=== PATIENT | male | born 1935 | race Caucasian/White ===

== ENCOUNTER 2016-11-05 09:20 | Inpatient (IN) | payer OTHER, BC ==
[~2016-11-05] VITALS: Ht 177.2 cm; Wt 87.8 kg
[2016-11-05] MEDS ORDERED: LISI-526 PO (13:19)
[2016-11-05] MEDS ORDERED: TRAM-10 PO (13:19)
[2016-11-05] MEDS ORDERED: GABA-113 PO (13:19)
[2016-11-05] MEDS ORDERED: TAMS0.4C38 PO (13:19)
[2016-11-05] MEDS ORDERED: AMLO-110 PO (13:19)
[2016-11-05] MEDS ORDERED: ATOR10TA88 PO (13:19)
[2016-11-05] MEDS ORDERED: ATV/2 PO (13:19)
[2016-11-05] MEDS ORDERED: ASPI81TA28 PO (13:19)
[2016-11-05] MEDS ORDERED: MULTCHW PO (13:19)
[2016-11-05] MEDS ORDERED: ATEN-175 PO (13:19)
[2016-11-05 13:38] VITALS: BP 154/76; PULSE 63; TEMP 36.7; O2SAT 98; Ht 177.2 cm; Wt 87.8 kg
[2016-11-05] MEDS ORDERED: LORAZEPAM 1 MG TAB PO PRN ×2 (14:00→14:30)
[2016-11-05] MEDS ORDERED: LORAZEPAM INJ 1 MG in SYRINGE 0.5 ML IV PRN (14:00)
[2016-11-05] MEDS ORDERED: TRAMADOL HCL 50 MG TAB PO PRN ×2 (14:00→14:30)
[2016-11-05] MEDS ORDERED: ONDANSETRON INJ 2 MG/ML 2 ML VIAL IV PRN (14:30)
[2016-11-05] MEDS: LACTATED RINGER'S 1000ML 1,000 ML IV SCH (14:32)
[2016-11-05 14:54] VITALS: BP 153/71; PULSE 64; TEMP 36.6; O2SAT 98
[2016-11-05] MEDS ORDERED: LACTATED RINGER'S 1000ML 1,000 ML IV SCH (15:00)
--- NOTE | 2016-11-05 15:17 | DIAGNOSTIC IMAGING REPORT ---
CHEST 2 VIEWS ROUTINE HISTORY: pre op COMPARISON: None. FINDINGS: The lungs are clear. Cardiac silhouette is top normal in size. No pleural effusions. No pneumothorax. A left coronary artery stent is noted. IMPRESSION: No acute process. Electronically signed by: Mike Cody M.D. 11/05/2016 3:16 PM Dictated Date/Time: 11/05/2016 3:12 PM
--- NOTE | 2016-11-05 15:20 | DIAGNOSTIC IMAGING REPORT ---
LUMBAR SPINE 3 VIEWS HISTORY: PREOP STANDING COMPARISON: None. FINDINGS: There is no fracture. There is 4 mm of retrolisthesis of L5 on S1. There is 5 mm of anterolisthesis of L4 on L5. Left total hip arthroplasty. Mild dextroscoliosis. Moderate osteoarthritis within the right hip. The sacrum appears intact. Severe disc space narrowing at L2-L3 and L3-L4. Moderate disc space narrowing at L4-L5 and L5-S1. Endplate osteophytes seen within the lumbar spine. IMPRESSION: 1. No fractures within the lumbar spine. 2. Grade I anterolisthesis of L4 on L5 and grade I retrolisthesis of L5 on S1. 3. Degenerative changes as described above. 4. Mild dextroscoliosis. Electronically signed by: Mike Cody M.D. 11/05/2016 3:19 PM Dictated Date/Time: 11/05/2016 3:16 PM
[2016-11-05 15:30] VITALS: O2SAT 98
--- NOTE | 2016-11-05 16:05 | Progress Note ---
Subjective Date of Service: Nov 05, 2016. Subjective Pt evaluation today including: conversation w/ patient, conversation w/ family , physical exam, chart review, review of inpatient medication list asked to see for inpt management - here for spine. notes that his medical hx is mostly CAD ([place] 2013, 6 stents), HTN (notes normally well controlled but does have white coat effect and is currently anxious) and BPH (typically 3-4x nocturia, peeing all day today but relates to being nervous) no chest pain no sob no mckeon. just saw sizing sprayer at home last week - echo, hollie, was "cleared for surgery" currently otherwise asymptomatic Review of Systems ros otherwise negative except for as above Objective Vital Signs Date Time Temp Pulse Resp B/P Pulse Ox O2 Delivery O2 Flow Rate FiO2 11/05/16 15:30 98 Room Air 11/05/16 14:54 36.6 64 18 153/71 98 Room Air 11/05/16 13:38 36.7 63 20 154/76 98 Room Air Physical Exam General Appearance: no apparent distress Eyes: EOMI ENT: hearing grossly normal Neck: trachea midline Respiratory/Chest: lungs clear, normal breath sounds, no respiratory distress, no accessory muscle use Cardiovascular: regular rate, rhythm, no murmur Extremities: normal range of motion Neurologic/Psychiatric: teacher associate II-XII nml as tested, alert, normal mood/affect Skin: normal color, warm/dry Laboratory Results Last 24 Hours Test 11/05/16 13:49 11/05/16 14:20 Assessment and Plan CAD - clinically appears stable, continue home meds, continue expectant management. appears recently has been asymptomatic and preop w/u w primary sizing sprayer was reassuring HTN - sl elevation at this time but nothing in worrisome/hypertensive crisis range. continue home meds, but hold lisinopril tomorrow AM and then post op until clearly hemodynamically stable BPH - continue flomax - raise to BID since still seems to have a large degree of LUTS. would also consider starting proscar at discharge DVT proph - per ortho/spine
[2016-11-05 16:25] LABS: BASO % 0.2 %; BASO ABS # 0.01 K/uL (0-0.2); COMPLETE YES; EOS % 0.8 %; HEMATOCRIT 35.2 % (42-52); IG% 0.2 %; LYMPH % 13.9 %; LYMPH ABS # 0.86 K/uL (1.2-3.4); MEAN CELL VOLUME 94.1 fL (80-100); MEAN CORPUSCULAR HEMOGLOBIN 34.2 pg (25-34); MEAN CORPUSCULAR HGB CONC 36.4 g/dl (32-36); MONO % 10.7 %; NEUT % 74.2 %; PLATELET COUNT 252 K/uL (130-400); RED BLOOD COUNT 3.74 M/uL (4.7-6.1); WHITE BLOOD COUNT 6.17 K/uL (4.8-10.8)
[2016-11-05 16:33] LABS: PROTHROMBIN TIME (PATIENT) 10.7 SECONDS (9.0-12.0)
[2016-11-05 16:50] LABS: BUN/CREATININE RATIO 13.3 (10-20); CALCIUM 8.7 mg/dl (8.5-10.1); CREATININE 0.95 mg/dl (0.60-1.40)
[2016-11-05 16:53] LABS: ALB/GLOB RATIO 1.2 (0.9-2)
--- NOTE | 2016-11-05 17:05 | Anesthesiology Progress Note ---
Anesthesia Progress Note Date of Service Nov 05, 2016. Progress Notes Pt is scheduled for L2-S1 lumbar decompression with bolts on 11/06/16. Pt is 81M h/o [place] 2013 s/p 6 stents, HTN, hyperlipidemia, former smoker, LBP, anemia. Pt was recently seen by [facility]. The pt has good functional status. The pt's records have been reviewed. I consented the pt for GA +/- arterial line. The pt is a good candidate for general anesthesia.
--- NOTE | 2016-11-05 19:41 | HISTORY & PHYSICAL EXAMINATION ---
DATE OF ADMISSION: 11/05/2016 CHIEF COMPLAINT: Back and bilateral leg pains. HISTORY OF PRESENT ILLNESS: This very pleasant 81-year-old male who presents with worsening decline in back and bilateral leg pain. He has had these symptoms for several years, again with a decline in function over the past several months. He describes his symptom complex involving ileocecal junction, bilateral buttocks extending down the right greater than left leg. It is markedly limited with any standing and walking. He can only stand and walk for 10-20 feet before he must sit down in order to obtain relief. PAST MEDICAL HISTORY: Significant for hypertension, anxiety and myocardial infarction in 2013. PAST SURGICAL HISTORY: Includes appendectomy, tonsillectomy, hysterectomy, knee surgery, vein surgery, cataract surgery, stent placements. MEDICATIONS: Include aspirin, amlodipine, lorazepam, lisinopril, atenolol, atorvastatin, gabapentin, vitamins and Tramadol. ALLERGIES: TO SULFA AND SENSITIVE TO PERCOCET AND MORPHINE. PHYSICAL EXAMINATION: GENERAL: He is alert and oriented and cooperative. MUSCULOSKELETAL: His lumbar spine demonstrates no abnormal swelling or skin markings. No previous incision is noted. EXTREMITIES: His lower extremities reveal sensory is symmetric and intact. +5/5 plantarflexion, dorsiflexion and quadriceps bilaterally. Negative log roll. ABDOMEN: Soft. HEART: Regular rate and rhythm. LUNGS: Clear. IMAGING: MRI dated April 2016 available for review of the lumbar spine demonstrates severe multilevel spinal stenosis most impressive at L4-L5 with a grade 1 spondylolisthesis. X-[facility] taken today at [facility] also confirmed anterior listhesis at L4-L5 and significant multilevel spondylosis. ASSESSMENT: Spinal stenosis, spondylolisthesis, lumbar. PLAN: At this time, he has failed extensive course of nonoperative care, marked decline in status and would like to pursue surgical intervention. It would require a lumbar decompression and fusion at L2-L3, L3-L4, L4-L5 and L5-S1, with lumbosacral stabilization, most likely including bilateral iliac bolts. Risks, benefits, pros, cons, and alternatives were outlined in detail. Risks include but not limited to from anesthesia, unsterile process, nerve damage, blood loss requiring transfusion, infection, reoperation. Benefits would be marked improvement of his neurogenic claudication. At this time, he will be made n.p.o. We anticipate surgery tomorrow.
[2016-11-05 20:03] LABS: URINE APPEARANCE CLEAR (CLEAR); URINE BILIRUBIN NEG (NEG); URINE COLOR YELLOW; URINE EPITHELIAL CELL AUTO 0-5 /lpf (0-5); URINE NITRITE NEG (NEG); URINE PH 6.5 (4.5-7.5); URINE SPECIFIC GRAVITY 1.019 (1.000-1.030); UROBILINOGEN NEG (NEG)
[2016-11-05 20:11] LABS: MANUAL MICROSCOPIC REQUIRED? NO; REVIEW REQ? NO
[2016-11-05] MEDS: GABAPENTIN 300 MG CAP PO SCH (20:57)
[2016-11-05] MEDS: ATORVASTATIN 10 MG TAB PO SCH (20:57)
[2016-11-05] MEDS: TAMSULOSIN HCL 0.4 MG CAP PO SCH (20:57)
[2016-11-05] MEDS: DOCUSATE SODIUM 100 MG CAP PO SCH (22:24)
[2016-11-05 23:30] VITALS: BP 127/62; PULSE 69; TEMP 36.6; O2SAT 96
[2016-11-06] VITALS (7 sets, daily range): BP systolic 99–148; BP diastolic 52–72; PULSE 65–75; TEMP 36.2–36.5; O2SAT 97–100
[2016-11-06] MEDS: LACTATED RINGER'S 1000ML 1,000 ML IV SCH ×3 (03:22→22:05)
[2016-11-06] MEDS ORDERED: CEFAZOLIN IV 1,000 MG in DEXTROSE 5% 50ML 50 ML IV SCH (06:00)
[2016-11-06] MEDS ORDERED: CEFAZOLIN 2000 MG/60 ML D5W IV SCH (06:00)
[2016-11-06] MEDS ORDERED: CEFAZOLIN IV 2,000 MG in DEXTROSE 5% 50ML 50 ML IV SCH (06:00)
--- NOTE | 2016-11-06 07:46 | Progress Note ---
Subjective Date of Service: Nov 06, 2016. Subjective this pt is feeling a bit anxious and is from reducing his lorazepam of which he takes 2 mg a day per home med [facility], back pain is improved, some blurrey vision which maybe from glucose intolerance Review of Systems Constitutional: No chills, No fever, No weakness Eyes: + worsening of vision, No diplopia, No discharge, No eye pain, No redness Respiratory: No cough, No shortness of breath Cardiac: No chest pain, No edema, No orthopnea Abdomen: No nausea, No pain, No vomiting Male : No dysuria, No urinary frequency Psychiatric: + anxiety, No depression symptoms Objective Vital Signs Date Time Temp Pulse Resp B/P Pulse Ox O2 Delivery O2 Flow Rate FiO2 11/06/16 07:15 36.5 65 20 148/72 97 Room Air 11/05/16 23:45 Room Air 11/05/16 23:30 36.6 69 18 127/62 96 Room Air 11/05/16 15:30 98 Room Air 11/05/16 14:54 36.6 64 18 153/71 98 Room Air 11/05/16 13:38 36.7 63 20 154/76 98 Room Air Physical Exam General Appearance: WD/WN, + mild distress Eyes: PERRL, EOMI, sclerae normal Neck: supple, no JVD Respiratory/Chest: chest non-tender, lungs clear, normal breath sounds Cardiovascular: regular rate, rhythm, no murmur Abdomen: normal bowel sounds, non tender, soft Extremities: no pedal edema, no calf tenderness Neurologic/Psychiatric: alert, oriented x 3 Laboratory Results Last 24 Hours Test 11/05/16 16:00 11/05/16 19:55 White Blood Count 6.17 K/uL Red Blood Count 3.74 M/uL Hemoglobin 12.8 g/dL Hematocrit 35.2 % Mean Corpuscular Volume 94.1 fL Mean Corpuscular Hemoglobin 34.2 pg Mean Corpuscular Hemoglobin Concent 36.4 g/dl Platelet Count 252 K/uL Mean Platelet Volume 8.0 fL Neutrophils (%) (Auto) 74.2 % Lymphocytes (%) (Auto) 13.9 % Monocytes (%) (Auto) 10.7 % Eosinophils (%) (Auto) 0.8 % Basophils (%) (Auto) 0.2 % Neutrophils # (Auto) 4.58 K/uL Lymphocytes # (Auto) 0.86 K/uL Monocytes # (Auto) 0.66 K/uL Eosinophils # (Auto) 0.05 K/uL Basophils # (Auto) 0.01 K/uL RDW Standard Deviation 40.4 fL RDW Coefficient of Variation 11.9 % Immature Granulocyte % (Auto) 0.2 % Immature Granulocyte # (Auto) 0.01 K/uL Prothrombin Time 10.7 SECONDS Prothromb Time International Ratio 1.0 Sodium Level 131 mmol/L Potassium Level 4.0 mmol/L Chloride Level 94 mmol/L Carbon Dioxide Level 28 mmol/L Anion Gap 9.0 mmol/L Blood Urea Nitrogen 13 mg/dl Creatinine 0.95 mg/dl Est Creatinine Clear Calc Drug Dose 66.6 ml/min Estimated GFR () 86.1 Estimated GFR (Non- 74.2 BUN/Creatinine Ratio 13.3 Random Glucose 118 mg/dl Calcium Level 8.7 mg/dl Total Bilirubin 0.7 mg/dl Aspartate Amino Transf (AST/SGOT) 21 U/L Alanine Aminotransferase (ALT/SGPT) 23 U/L Alkaline Phosphatase 55 U/L Total Protein 6.9 gm/dl Albumin 3.8 gm/dl Globulin 3.1 gm/dl Albumin/Globulin Ratio 1.2 Urine Color YELLOW Urine Appearance CLEAR Urine pH 6.5 Urine Specific [place] 1.019 Urine Protein NEG Urine Glucose (UA) TRACE Urine Ketones TRACE Urine Occult Blood TRACE Urine Nitrite NEG Urine Bilirubin NEG Urine Urobilinogen NEG Urine Leukocyte Esterase NEG Urine WBC (Auto) 0 /hpf Urine RBC (Auto) 5-10 /hpf Urine Hyaline Casts (Auto) 0 /lpf Urine Epithelial Cells (Auto) 0-5 /lpf Urine Bacteria (Auto) NEG Assessment and Plan 81 M s/p spine surgery L2-S1 decompression and fusion anxiety, likely some bzd withdrawl will add scheduled lorazepam back and follow CAD - stable, preop w/u w primary hatchery worker HTN - norvasc and atenolol, hold lisinopril tomorrow AM and until hemodynamically stable BPH - flomax -BID DVT proph - per ortho/spine
[2016-11-06] MEDS: TRAMADOL HCL 50 MG TAB PO PRN (08:00)
[2016-11-06] MEDS: ASPIRIN 81 MG ECTAB PO SCH (08:59)
[2016-11-06] MEDS: GABAPENTIN 300 MG CAP PO SCH ×3 (08:59→20:58)
[2016-11-06] MEDS: AMLODIPINE BESYLATE 5 MG TAB PO SCH (08:59)
[2016-11-06] MEDS ORDERED: LISINOPRIL 10 MG TAB PO SCH (09:00)
[2016-11-06] MEDS ORDERED: LORAZEPAM 2 MG TAB PO SCH (09:00)
[2016-11-06] MEDS: DOCUSATE SODIUM 100 MG CAP PO SCH ×2 (09:00→20:58)
[2016-11-06] MEDS ORDERED: PROPOFOL IV EMULSION 10 MG/ML 20 ML VIAL IV ONE (10:45)
[2016-11-06] MEDS ORDERED: ONDANSETRON INJ 2 MG/ML 2 ML VIAL ONE (10:45)
[2016-11-06] MEDS ORDERED: LIDOCAINE HCL 2% 2 ML VIAL (20MG/ML) ONE (10:45)
[2016-11-06] MEDS ORDERED: ROCURONIUM BROMIDE 10 MG/ML 5 ML VIAL ONE ×2 (10:45→16:22)
[2016-11-06] MEDS ORDERED: FENTANYL CITRATE INJ 50 MCG/1 ML 2 ML VIAL ONE ×2 (10:45→15:31)
[2016-11-06] MEDS ORDERED: DEXAMETHASONE SOD INJ 4 MG/ML VIAL ONE (10:45)
[2016-11-06] MEDS ORDERED: ALBUMIN HUMAN 5% 12.5 GM/250 ML VIAL IV ONE (11:29)
--- NOTE | 2016-11-06 11:41 | History & Physical Bridge Note ---
H&P Re-Evaluation Bridge Note: I have examined the patient, reviewed the History & Physical and in the interval since the performance of the History & Physical I have noted the following changes of clinical significance: No changes noted
[2016-11-06] MEDS ORDERED: SODIUM CHLORIDE 0.9% PF 50 ML VIAL ONE (11:56)
[2016-11-06] MEDS ORDERED: BACITRACIN 50000 UNIT VIAL ONE (11:56)
[2016-11-06] MEDS ORDERED: BUPIVACAINE/EPINEPHRINE 0.5% MPF 1:200,000 30 ML VIAL ONE (11:56)
[2016-11-06] MEDS ORDERED: THROMBIN FOR SOLN 20000 UNIT KIT ONE (11:57)
[2016-11-06] MEDS ORDERED: PROMETHAZINE HCL INJ 6.25 MG in SODIUM CHLORIDE 0.9% 50ML 50 ML IV PRN (12:15)
[2016-11-06] MEDS ORDERED: ONDANSETRON INJ 2 MG/ML 2 ML VIAL IV PRN ×2 (12:15→15:45)
[2016-11-06] MEDS ORDERED: HYDROmorphone INJ 1 MG/ML SYR IV PRN (12:15)
[2016-11-06] MEDS ORDERED: EpHEDrine SULFATE INJ 50 MG/ML AMP IV PRN (12:15)
[2016-11-06] MEDS ORDERED: ATROPINE SULFATE 0.1 MG/ML 5ML SYR IV PRN (12:15)
[2016-11-06] MEDS ORDERED: PHENYLEPHRINE HCL INJ 10 MG/ML VIAL ONE (12:45)
[2016-11-06] MEDS ORDERED: KETAMINE HCL INJ 50 MG/ML 10 ML VIAL ONE (12:45)
[2016-11-06] MEDS ORDERED: EpHEDrine SULFATE 50MG/5ML SYR ONE (12:54)
[2016-11-06] MEDS ORDERED: VASOPRESSIN 20 UNIT/ML VIAL ONE (13:06)
[2016-11-06] MEDS ORDERED: SODIUM CHLORIDE 0.9% 1000ML 1,000 ML IV SCH (15:42)
[2016-11-06] MEDS ORDERED: BISACODYL 10 MG SUPP PR PRN (15:45)
[2016-11-06] MEDS ORDERED: FAMOTIDINE 20 MG TAB PO PRN (15:45)
[2016-11-06] MEDS ORDERED: SOD PHOSPHATE/SOD BIPHOSPHATE ENEMA 132 ML BTL PR PRN (15:45)
[2016-11-06] MEDS ORDERED: PROMETHAZINE HCL INJ 12.5 MG in SODIUM CHLORIDE 0.9% 50ML 50 ML IV PRN (15:45)
[2016-11-06] MEDS ORDERED: MAGNESIUM HYDROXIDE SUSP 30 ML UDC PO PRN (15:45)
[2016-11-06] MEDS ORDERED: hydrOXYzine HCL 25 MG TAB PO PRN (15:45)
[2016-11-06] MEDS ORDERED: DO NOT ADMINISTER PNEUMOCOCCAL VACCINE PRN ×2 (15:45)
[2016-11-06] MEDS ORDERED: NALOXONE HCL 0.4 MG/1 ML VIAL/CARP IV PRN ×2 (15:45)
[2016-11-06] MEDS ORDERED: ALUMINUM/MAGNESIUM SUSP 30 ML UDC PO PRN (15:45)
[2016-11-06] MEDS ORDERED: ACETAMINOPHEN 500 MG TAB PO PRN (15:45)
[2016-11-06] MEDS ORDERED: METOCLOPRAMIDE HCL INJ 5 MG/ML 2 ML VIAL IV PRN (15:45)
[2016-11-06] MEDS ORDERED: LORAZEPAM INJ 0.5 MG in SYRINGE 0 ML IV PRN (15:45)
[2016-11-06] MEDS ORDERED: ACETAMINOPHEN IV 100 ML IV PRN (15:45)
[2016-11-06] MEDS ORDERED: DO NOT ADMINISTER FLU VACCINE PRN ×3 (15:45)
--- NOTE | 2016-11-06 16:03 | OPERATIVE REPORT ---
DATE OF OPERATION: 11/06/2016 PREOPERATIVE DIAGNOSES: Spinal stenosis and spondylolisthesis. POSTOPERATIVE DIAGNOSES: Same. PROCEDURES PERFORMED: 1. Lumbar decompression, medial facetectomy and foraminotomy, L2-L3, L3-L4, L4-L5, and L5-S1. 2. Posterior spinal fusion, L2-L3, L3-L4, L4-L5, and L5-S1. 3. Bilateral SI joint fusions. 4. Placement of posterior segmental instrumentation using Medicrea rods and screws as well as bilateral iliac bolts and a crosslink, L2-S1. 5. Interbody fusion, L4-L5. 6. Placement of PEEK cage 11 x 26 mm at L4-L5. 7. Placement of locally harvested morcellized autograft in the posterior gutters. 8. Placement of Infuse collagen sponge combined with Mastergraft in the posterior gutters and Krystal bone grafting in the interbody space. SURGEON: Dr. Shivam Chapman. CROP GRAIN OR LIVESTOCK FARMER: Mallory Mckinley PA-C. Due to the complex nature of the procedure, the entire surgery was performed with the human resources assistant manager of [employer]. The volunteer assistant, under direct supervision, was involved in the actual performance of all aspects of the surgical procedure including hemostasis, tissue retraction and incision, instrument management, patient positioning, and wound closure. ANESTHESIA: General. DISPOSITION: The patient awakened and taken to PACU in stable condition. HISTORY OF PATIENT'S PROBLEMS: This is an 81-year-old male who presents with the above-mentioned diagnoses. After failing an extensive course of nonoperative care, he elected to undergo the above-mentioned procedures. Risks, benefits, pros, cons, and alternatives were outlined in detail preoperatively. DESCRIPTION OF PROCEDURE: The patient was met with preoperatively, case discussed and all questions were addressed. At that point, the patient was taken back to operative suite and after undergoing successful general intubation by the department of anesthesia, he was placed in prone position on Mt table atop Tyson frame. All bony prominences were well padded and the eyes were inspected to ensure there was no external pressure placed upon them. At this point, lumbar spine was prepped and draped in normal sterile fashion. Sharp dissection with the assistance of Bovie cautery performed down to and exposing the lamina and transverse processes of L2, L3, L4, L5 and bilateral sacral alae and SI joints. From a caudal to cephalad fashion, complete laminectomy of L5, L4, L3 and L2 was performed addressing severe central and lateral recess disease. After this was complete, pedicle screws were then placed in L2, L3, L4, L5 and S1 levels as well as the bilateral iliac bolts. I did elect to avoid interbody at the L5-S1 level and tried to retain as much of SI joint as possible to assist in a fusion mass. We did note fairly significant osteoporosis throughout the decompression. Through a transforaminal approach on the right, a complete diskectomy of L4-L5 was performed, endplates curetted to subcortical bleeding bone and an 11 x 26 mm PEEK cage filled with Krystal bone grafting tapped into position. Appropriate size rods were then contoured, locked into final position bilaterally and transverse processes of L2, L3, L4, L5 and sacral ala and bilateral SI joints were burred to subcortical bleeding bone. Infuse collagen sponge combined with Mastergraft and locally harvested morcellized autograft was placed. A crosslink locked into position. A 7 flat ANGEL drain inserted. Incision was closed with 1-0 Vicryl in the fascia, 2-0 Vicryl subcutaneously, and 4-0 Monocryl for final skin closure. Steri-Strips and sterile dressing placed. The patient was awakened and taken to PACU in stable condition. I attest to the content of the Intraoperative Record and any orders documented therein. Any exceptio ns are noted below.
--- NOTE | 2016-11-06 16:03 | DIAGNOSTIC IMAGING REPORT ---
LUMBAR SPINE, INTRAOPERATIVE FLUOROSCOPY HISTORY: L2-S1 decompression and fusion. FLUOROSCOPY TIME: 38 seconds. FINDINGS: Intraoperative fluoroscopy was provided for the lumbar spine. 5 fluoroscopic spot images were obtained. Posterior decompression and fusion from L2 through S1 with pedicle screws and rods. There are bilateral sacroiliac bolts. The hardware appears intact. IMPRESSION: Fluoroscopy provided for a L2-1 posterior decompression and fusion. Electronically signed by: Mike Cody M.D. 11/06/2016 4:02 PM Dictated Date/Time: 11/06/2016 4:01 PM
[2016-11-06] MEDS: HYDROmorphone HCL 0.5MG/ML 50 ML CASSETTE IV PRN ×3 (16:25→22:53)
[2016-11-06 16:42] LABS: ISTAT CREATININE 0.6 mg/dl (0.6-1.3); ISTAT HEMOGLOBIN 10.5 g/dl (14.0-18.0); ISTAT IONIZED CALCIUM 1.15 mmol/l (1.12-1.32)
[2016-11-06 16:42] LABS: ISTAT CREATININE 0.7 mg/dl (0.6-1.3); ISTAT HEMOGLOBIN 11.2 g/dl (14.0-18.0); ISTAT IONIZED CALCIUM 1.18 mmol/l (1.12-1.32)
--- NOTE | 2016-11-06 16:59 | Anesthesiology Progress Note ---
Anesthesia Post Op Note Date & Time Nov 06, 2016 at 16:58 Vital Signs Pain Intensity: 6 Vital Signs Past 12 Hours Date Time Temp Pulse Resp B/P Pulse Ox O2 Delivery O2 Flow Rate FiO2 11/06/16 16:50 63 15 100/54 96 Nasal Cannula 4 11/06/16 16:40 66 16 102/54 98 Nasal Cannula 4 11/06/16 16:30 70 13 118/67 100 Mask 10 11/06/16 16:20 76 10 124/71 100 Mask 10 11/06/16 16:12 36.2 82 15 111/70 100 Mask 10 11/06/16 11:20 36.5 65 16 153/76 98 Room Air 11/06/16 09:12 Room Air 11/06/16 07:38 Room Air 11/06/16 07:15 36.5 65 20 148/72 97 Room Air Notes Mental Status: alert / awake / arousable, participated in evaluation Pt Amnestic to Procedure: Yes Nausea / Vomiting: adequately controlled Pain: adequately controlled Airway Patency, RR, SpO2: stable & adequate BP & HR: stable & adequate Hydration State: stable & adequate Anesthetic Complications: no major complications apparent
[2016-11-06] MEDS: FENTANYL CITRATE INJ 50 MCG/1 ML 2 ML VIAL IV PRN ×3 (17:03→17:13)
[2016-11-06] MEDS: DEXAMETHASONE INJ 6 MG in SYRINGE 0 ML IV SCH (18:35)
[2016-11-06] MEDS: CEFAZOLIN IV 2,000 MG in DEXTROSE 5% 50ML 50 ML IV SCH (20:55)
[2016-11-06] MEDS: LORAZEPAM 0.5 MG TAB PO PRN (20:58)
[2016-11-06] MEDS: ATORVASTATIN 10 MG TAB PO SCH (20:58)
[2016-11-06] MEDS: TAMSULOSIN HCL 0.4 MG CAP PO SCH (20:58)
[2016-11-06] MEDS: DOCUSATE SODIUM/SENNA 50/8.6MG TAB PO SCH (20:59)
[2016-11-07] MEDS: DEXAMETHASONE INJ 6 MG in SYRINGE 0 ML IV SCH ×2 (03:09→11:21)
[2016-11-07 03:37] VITALS: BP 129/63; PULSE 76; TEMP 36.4; O2SAT 98
[2016-11-07] MEDS: CEFAZOLIN IV 2,000 MG in DEXTROSE 5% 50ML 50 ML IV SCH (03:45)
[2016-11-07] MEDS: LACTATED RINGER'S 1000ML 1,000 ML IV SCH (05:13)
[2016-11-07] MEDS ORDERED: DC PCA ONE (06:00)
[2016-11-07] MEDS ORDERED: HYDROmorphone INJ 0.5 MG/0.5 ML SYR IV PRN (06:00)
[2016-11-07 06:17] LABS: HEMATOCRIT 25.7 % (42-52); MEAN CELL VOLUME 94.8 fL (80-100); MEAN CORPUSCULAR HEMOGLOBIN 33.9 pg (25-34); MEAN CORPUSCULAR HGB CONC 35.8 g/dl (32-36); MEAN PLATELET VOLUME 7.9 fL (7.4-10.4); PLATELET COUNT 209 K/uL (130-400); RED BLOOD COUNT 2.71 M/uL (4.7-6.1); WHITE BLOOD COUNT 11.22 K/uL (4.8-10.8)
[2016-11-07 06:26] LABS: BASO % 0.1 %; BASO ABS # 0.01 K/uL (0-0.2); COMPLETE YES; IG% 0.3 %; LYMPH % 3.8 %; LYMPH ABS # 0.43 K/uL (1.2-3.4); MONO % 2.2 %; NEUT % 93.6 %
[2016-11-07 06:30] VITALS: BP 138/65; PULSE 82; O2SAT 96
[2016-11-07] MEDS: LORAZEPAM 0.5 MG TAB PO PRN (06:36)
[2016-11-07 06:37] LABS: CALCIUM 7.7 mg/dl (8.5-10.1); CREATININE 0.87 mg/dl (0.60-1.40); POTASSIUM 4.3 mmol/L (3.5-5.1)
[2016-11-07 06:56] VITALS: BP 108/58; PULSE 67; TEMP 36.7; O2SAT 94
--- NOTE | 2016-11-07 07:44 | Anesthesiology Progress Note ---
Anesthesia Post Op Note Date & Time Nov 07, 2016 at 07:45 Vital Signs Vital Signs Past 12 Hours Date Time Temp Pulse Resp B/P Pulse Ox O2 Delivery O2 Flow Rate FiO2 11/07/16 06:56 36.7 67 19 108/58 94 Room Air 11/07/16 06:30 82 138/65 96 Room Air 11/07/16 03:37 36.4 76 18 129/63 98 Nasal Cannula 2.0 11/06/16 23:35 Nasal Cannula 2.0 11/06/16 23:05 36.2 75 16 133/71 100 Nasal Cannula 2.0 11/06/16 20:50 36.3 73 16 99/52 98 Nasal Cannula 2.0 11/06/16 19:52 36.3 68 16 100/55 100 Nasal Cannula 4.0 Notes Mental Status: alert / awake / arousable, participated in evaluation Pt Amnestic to Procedure: Yes Nausea / Vomiting: adequately controlled Pain: adequately controlled Airway Patency, RR, SpO2: stable & adequate BP & HR: stable & adequate Hydration State: stable & adequate Anesthetic Complications: no major complications apparent
[2016-11-07] MEDS: DOCUSATE SODIUM 100 MG CAP PO SCH ×2 (08:37→20:55)
[2016-11-07] MEDS: GABAPENTIN 300 MG CAP PO SCH ×3 (08:37→20:55)
[2016-11-07] MEDS: AMLODIPINE BESYLATE 5 MG TAB PO SCH (08:38)
[2016-11-07] MEDS: ASPIRIN 81 MG ECTAB PO SCH (08:38)
[2016-11-07] MEDS ORDERED: NURSING VERBAL MED ORDER ONE (10:15)
[2016-11-07] MEDS ORDERED: LORAZEPAM 1 MG TAB PO STA (11:02)
--- NOTE | 2016-11-07 11:53 | Clinical Documentation Query ---
BENNIE Pandey : CLINICAL DOCUMENTATION QUERY Patient is a 81 year old male who on 11/06 underwent lumbar decompression and lumbosacral posterior spinal fusion. EBL for the procedure was 450 ml's with subsequently documented losses to date totaling an additional 930 ml's. Preoperative hemoglobin and hematocrit were 12.8 g/dl and 35.2%. POD #1, values are 9.2 g/dl and 25.7%. I/O is noted to be positive for approximately 1,800 ml's at this time. He is being monitored with serial hematology and I/O including drain outputs. Please clarify as clinically appropriate. Thank you. In your clinical opinion is this patient being managed for: ( ) Acute blood loss and hemodilutional anemia ( ) Other explanation of clinical findings (Please Explain) ( ) Unable to determine (Please Define) ( ) Need to Discuss ( ) Not Agree The medical record reflects the following clinical findings, treatment, and risk factors. Clinical Indicators:As above Treatment:is being monitored with serial hematology and I/O including drain outputs Risk Factors: Acute perioperative blood losses, IVF administration. Please clarify and document your clinical opinion in the progress notes and discharge summary. Terms such as "probable", "suspected", "likely", "questionable", "possible", or "still to be ruled out" are acceptable. IF IN AGREEMENT, YOU MUST DOCUMENT ABOVE DIAGNOSTIC STATEMENT IN DAILY PROGRESS NOTES AND DISCHARGE SUMMARY. This document is not part of the patient's record. Thank You, Gabino Boykin, ASHTYN [phone]
[2016-11-07] MEDS: POLYETHYLENE (MIRALAX) 17 GM PACK PO SCH ×2 (12:15→20:54)
[2016-11-07] MEDS: TRAMADOL HCL 50 MG TAB PO PRN (13:35)
--- NOTE | 2016-11-07 13:59 | PROGRESS NOTE ---
DATE: 11/07/2016 DATE: 11/07/2016. SUBJECTIVE: Postop day 1. Back pain is controlled. Leg pain improved. Vital signs stable. T-max 36.7. ANGEL drained 525 mL over the last shift. Hematocrit this a.m. is 25.7. OBJECTIVE: On exam, the patient is in chair at bedside. Has good strength to testing. Appears comfortable. ASSESSMENT: Status post lumbar decompression and fusion. PLAN: At this time, will continue with physical therapy, advance his bowel regimen and consider disposition in the next few days.
[2016-11-07 15:36] VITALS: BP 115/59; PULSE 66; TEMP 36.6; O2SAT 98
[2016-11-07] MEDS: TAMSULOSIN HCL 0.4 MG CAP PO SCH (18:29)
[2016-11-07] MEDS: HYDROCODONE/ACETAMOPHEN 5/325MG TAB PO PRN ×2 (19:35→20:10)
[2016-11-07] MEDS: DOCUSATE SODIUM/SENNA 50/8.6MG TAB PO SCH (20:55)
[2016-11-07] MEDS: ATORVASTATIN 10 MG TAB PO SCH (20:55)
[2016-11-07 23:23] VITALS: BP 135/78; PULSE 80; TEMP 36.4; O2SAT 99
[2016-11-08] MEDS: HYDROCODONE/ACETAMOPHEN 5/325MG TAB PO PRN ×5 (00:13→23:54)
[2016-11-08] MEDS ORDERED: POLYETHYLENE (MIRALAX) 17 GM PACK PO SCH (06:00)
[2016-11-08 06:59] VITALS: BP 110/62; PULSE 88; TEMP 36.7; O2SAT 99
[2016-11-08] MEDS: TRAMADOL HCL 50 MG TAB PO PRN ×2 (07:22→15:56)
[2016-11-08 08:29] VITALS: BP 95/54; PULSE 73
[2016-11-08] MEDS: GABAPENTIN 300 MG CAP PO SCH ×3 (08:35→20:53)
[2016-11-08] MEDS: POLYETHYLENE (MIRALAX) 17 GM PACK PO SCH ×2 (08:35→20:54)
[2016-11-08] MEDS: ASPIRIN 81 MG ECTAB PO SCH (08:35)
[2016-11-08] MEDS: DOCUSATE SODIUM 100 MG CAP PO SCH ×2 (08:35→20:54)
[2016-11-08] MEDS: LORAZEPAM 2 MG TAB PO PRN (08:38)
[2016-11-08] MEDS: AMLODIPINE BESYLATE 5 MG TAB PO SCH (09:00)
[2016-11-08 10:50] VITALS: BP 93/52; PULSE 74; TEMP 36.5; O2SAT 99
[2016-11-08] MEDS ORDERED: HYDR-5688 PO (13:13)
--- NOTE | 2016-11-08 13:14 | Discharge Instructions ---
Discharge Instructions Admission Reason for Admission: Lumbar Stenosis With Neurogenic Claudication Discharge Discharge Diagnosis / Problem: stenosis Discharge Goals Goal(s): Improve function Activity Recommendations Activity Limitations: per Instructions/Follow-up section . Instructions / Follow-Up Instructions / Follow-Up ACTIVITY RECOMMENDATIONS: SELF CARE INSTRUCTIONS AFTER THORACIC/LUMBAR FUSIONS 1. You may walk to your tolerance. It is good exercise for your legs and back. Expect some back and intermittent leg aches and pains. 2. You may perform "counter-top" level activities (make a sandwich, adriano with a project, etc.). 3. No bending or lifting of more than 10 pounds or back twisting of any nature (roll like a log when turning in bed). 4. You may ride in a car for 20-30 minutes at a time. No driving until after your first visit with your doctor. 5. Frequent changes of position and restricting sitting to 30 minutes at a time will help limit the amount of back spasms and stiffness you may experience. 6. You may discontinue the use of ambulatory aids (cane, crutches, etc.) once your strength and confidence allow. 7. You may fabrication engineer the shower and let water strike your incision when you arrive home at least once daily. Do not take a tub bath, sit in a hot tub or go into a swimming pool until after your first recheck in the office. SPECIAL CARE INSTRUCTIONS: VERY IMPORTANT TO READ AND REVIEW A. Your surgical incision has been closed with a cosmetic suture under the skin that will dissolve in about 6 weeks. In 14 days, you can use a pair of clean scissors and cut the suture that is left outside of the skin at the ends of your incision. 1. The small skin tapes can be removed 7 days after surgery if they have not fallen off by that point. 2. You may keep the wound open to air as much as possible to promote healing after post-op day number 5 unless told otherwise by your doctor. 3. If you think the wound looks like it is becoming infected (redness or worsening drainage) and/or you are experiencing fever, chill or worsening back pain and muscle spasms, contact the office so that we may evaluate you as soon as possible. B. Complications are uncommon, but please contact us if you have any signs or symptoms of: 1. wound infection (fever higher than 102.5 degrees F, redness, separation of wound, drainage, or increasing pain from the incision) 2. blood clots in legs (pain, swelling, redness and warmth in legs) 3. urinary tract infection (fever higher than 102.5 degrees F, burning upon urination or increased frequency of urination) 4. nerve problems (inability to walk on your toes or heels, numbness, loss of bowel or bladder control) 5. any other symptoms that concern you C. Please call the office at if you have any concerns or questions about your operation or recovery. D. No smoking! Smoking drastically decreases the chance of a solid fusion. E. Do not take any anti-inflammatory medications (Indocin, Advil, Motrin, Aspirin, Naprosyn, etc.) as these may inhibit the chance of a solid fusion. Tylenol is okay to take for pain. MANAGING PAIN AFTER SPINAL SURGERY 1. Narcotic medication is intended for short-term use and will be provided for surgical pain. Surgical pain usually lasts for a period of 4-6 weeks. Narcotic medication includes Percocet, Vicodin, Darvocet, Tylenol #3 or Lortab. 2. Longer-term pain is more appropriately treated with non-narcotic medication such as Tylenol ES. 3. Muscle spasm is not appropriately treated with narcotics. Muscle relaxers such as Soma, Flexeril or Skelaxin can be used along with Tylenol ES. 4. Remember that we all live with some "aches and pains". This is not unusual or uncommon after an injury or as we get older. a. Back pain is expected and may include muscle spasms for 4 to 6 weeks after surgery. The pain should gradually improve. If the pain worsens for no apparent reason, please contact the office. b. Intermittent leg pain may also be experienced and should not be concerned about unless it worsens for no apparent reason. If so, please contact the office. 5. We will provide appropriate medication within the normal guidelines of their prescribed use. We will also be very cautious and aware of potential abuse and extended duration of patients' medication needs. a. Pain medications are for your comfort and to assist with sleep and rest so that the tissue can heal. They are not provided in order to return to normal activity and should not be used through the day. To do so or worsening pain at night can result from ongoing tissue damage and development of tolerance to the prescribed medicine. 6. Please allow 2-3 days to process refills. Prescriptions will not be mailed but must be picked up at the office. FOLLOW UP VISIT: Keep your scheduled follow-up appointment. Any questions, please call the office at . Current Hospital Diet Patient's current hospital diet: Regular Diet Discharge Diet Recommended Diet: Regular Diet Procedures Procedures Performed: L2-S1 LUMBAR DECOMPRESSION WITH BOLTS Pending Studies Studies pending at discharge: no Medical Emergencies . Who to Call and When: Medical Emergencies: If at any time you feel your situation is an emergency, please call 911 immediately. . Non-Emergent Contact Non-Emergency issues call your: Primary Care Provider . "Provider Documentation" section prepared by Shivam Chapman. VTE Core Measure Inpt VTE Proph given/why not?: Maryuri Kapoor, SCD's
--- NOTE | 2016-11-08 14:13 | Progress Note ---
Subjective Date of Service: Nov 08, 2016. Subjective pt states he feels more back to his usual, nursing notes that he has some lower blood pressure Review of Systems Constitutional: + weakness, No chills, No fever Respiratory: No cough, No shortness of breath Cardiac: No chest pain, No edema Abdomen: No diarrhea, No pain, No vomiting Neurologic: + balance problems, + weakness, No memory loss Objective Vital Signs Date Time Temp Pulse Resp B/P Pulse Ox O2 Delivery O2 Flow Rate FiO2 11/08/16 10:50 36.5 74 14 93/52 99 Room Air 11/08/16 08:29 73 95/54 11/08/16 08:03 Room Air 11/08/16 07:15 Room Air 11/08/16 06:59 36.7 88 16 110/62 99 Room Air 11/07/16 23:23 36.4 80 18 135/78 99 Room Air 11/07/16 23:10 Room Air 11/07/16 16:30 Room Air 11/07/16 15:36 36.6 66 18 115/59 98 Room Air Physical Exam General Appearance: WD/WN, + mild distress Neck: supple, no JVD Respiratory/Chest: chest non-tender, lungs clear, normal breath sounds Cardiovascular: regular rate, rhythm, no murmur Abdomen: normal bowel sounds, non tender, soft Extremities: no pedal edema, no calf tenderness Neurologic/Psychiatric: alert, oriented x 3 Assessment and Plan 81 M s/p spine surgery L2-S1 decompression and fusion anxiety, likely some bzd withdrawal improved with resumption of scheduled lorazepam CAD - stable, 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
--- NOTE | 2016-11-08 15:29 | PROGRESS NOTE ---
DATE: 11/08/2016 DATE: 11/08/2016. SUBJECTIVE: Postop day 2, back pain is controlled. Leg pain improved. Vital signs stable. T-max 36.7. ANGEL drained 140 mL today. Hematocrit 25.7. OBJECTIVE: On exam he is in chair at bedside, demonstrates good strength to testing. Appears comfortable. ASSESSMENT: Status post multilevel decompression and fusion. PLAN: At this time will continue with physical therapy, advance his bowel regimen, assess his progress as we anticipate either discharge home or to rehab in the next few days.
[2016-11-08 15:33] VITALS: BP 129/66; PULSE 83; TEMP 36.9; O2SAT 100
[2016-11-08] MEDS: TAMSULOSIN HCL 0.4 MG CAP PO SCH (20:54)
[2016-11-08] MEDS: ATORVASTATIN 10 MG TAB PO SCH (20:54)
[2016-11-08] MEDS: DOCUSATE SODIUM/SENNA 50/8.6MG TAB PO SCH (20:54)
[2016-11-08 22:55] VITALS: BP 119/67; PULSE 92; TEMP 37.2; O2SAT 100
[2016-11-09] VITALS (14 sets, daily range): BP systolic 98–150; BP diastolic 55–76; PULSE 88–109; TEMP 36.2–37.1; O2SAT 93–100
[2016-11-09] MEDS: HYDROCODONE/ACETAMOPHEN 5/325MG TAB PO PRN ×3 (04:56→16:52)
[2016-11-09] MEDS: GABAPENTIN 300 MG CAP PO SCH ×3 (08:33→20:45)
[2016-11-09] MEDS: DOCUSATE SODIUM 100 MG CAP PO SCH ×2 (08:33→20:45)
[2016-11-09] MEDS: ASPIRIN 81 MG ECTAB PO SCH (08:33)
[2016-11-09] MEDS: POLYETHYLENE (MIRALAX) 17 GM PACK PO SCH ×2 (08:33→20:45)
[2016-11-09] MEDS: LORAZEPAM 2 MG TAB PO PRN (08:46)
[2016-11-09 10:42] LABS: HEMATOCRIT 21.6 % (42-52)
--- NOTE | 2016-11-09 12:01 | Clinical Documentation Query ---
MARY Barrera : CLINICAL DOCUMENTATION QUERY Patient is a 81 year old male who on 11/06 underwent lumbar decompression and lumbosacral posterior spinal fusion. EBL for the procedure was 450 ml's with subsequently documented losses to date totaling an additional 1,575 ml's. Preoperative hemoglobin and hematocrit were 12.8 g/dl and 35.2%. POD #3, values are 7.7g/dl and 21.6%. I/O is noted to be positive for approximately 3,000 ml's at this time. He is being monitored with serial hematology and I/O including drain outputs. Please clarify as clinically appropriate. Thank you. In your clinical opinion is this patient being managed for: ( XX ) Acute blood loss and hemodilutional anemia ( ) Other explanation of clinical findings (Please Explain) ( ) Unable to determine (Please Define) ( ) Need to Discuss ( ) Not Agree The medical record reflects the following clinical findings, treatment, and risk factors. Clinical Indicators:As above Treatment:is being monitored with serial hematology and I/O including drain outputs Risk Factors: Acute perioperative blood losses, IVF administration. Please clarify and document your clinical opinion in the progress notes and discharge summary. Terms such as "probable", "suspected", "likely", "questionable", "possible", or "still to be ruled out" are acceptable. IF IN AGREEMENT, YOU MUST DOCUMENT ABOVE DIAGNOSTIC STATEMENT IN DAILY PROGRESS NOTES AND DISCHARGE SUMMARY. This document is not part of the patient's record. Thank You, Gabino Boykin, ASHTYN [phone]
[2016-11-09] MEDS: TRAMADOL HCL 50 MG TAB PO PRN ×2 (12:24→20:45)
--- NOTE | 2016-11-09 14:26 | PROGRESS NOTE ---
DATE: 11/09/2016 DATE: 11/09/2016. SUBJECTIVE: Postop day 3. Back pain is controlled. Leg pain improved. A little bit retired today, shortness of breath struggling with any prolonged standing and ambulation. Vital signs stable. T-max 36.9. ANGEL drained 70 mL. Hematocrit is 21.6 today. OBJECTIVE: On exam he has good strength to testing. He is ambulating halls. ASSESSMENT: Status post lumbar decompression and fusion. PLAN: At this time, we will transfuse 2 units today, reassess in the a.m., anticipate discharge home.
--- NOTE | 2016-11-09 17:00 | Progress Note ---
Subjective Date of Service: Nov 09, 2016. Subjective pt states he feels weak and fatigued, still with rosario drainage from back, no other complaints anxiety is much better Review of Systems Constitutional: + fatigue, + weakness, No chills, No fever Respiratory: No cough, No shortness of breath Cardiac: No chest pain, No edema Abdomen: No diarrhea, No nausea, No pain, No vomiting Musculoskeletal: + joint pain, + muscle pain Psychiatric: No anhedonism, No depression symptoms Objective Vital Signs Date Time Temp Pulse Resp B/P Pulse Ox O2 Delivery O2 Flow Rate FiO2 11/09/16 16:45 36.9 98 18 137/76 100 11/09/16 16:41 Room Air 11/09/16 16:21 36.7 90 18 115/63 98 11/09/16 15:45 37.0 88 18 109/61 97 11/09/16 15:30 96 16 101/57 95 11/09/16 15:30 37.1 11/09/16 15:18 36.2 96 18 122/63 96 11/09/16 08:34 98/55 11/09/16 07:07 36.9 94 17 106/63 93 Room Air 11/09/16 07:00 Room Air 11/08/16 23:45 Room Air 11/08/16 22:55 37.2 92 18 119/67 100 Room Air Physical Exam General Appearance: WD/WN, + mild distress Neck: supple, no JVD Respiratory/Chest: chest non-tender, lungs clear, normal breath sounds Cardiovascular: regular rate, rhythm, no murmur Abdomen: normal bowel sounds, non tender, soft Extremities: no pedal edema, no calf tenderness Laboratory Results Last 24 Hours Test 11/09/16 10:29 Hemoglobin 7.7 g/dL Hematocrit 21.6 % Assessment and Plan 81 M s/p spine surgery L2-S1 decompression and fusion I reviewed labs and is with acute blood loss anemia and hemodilutional anemia and ordered transfusion, anxiety,previous bzd withdrawal improved with resumption of scheduled 2 mg lorazepam CAD - continues to be stable, preop w/u w primary station tender HTN - blood pressure has been low despite holding lisinopril, will also hold norvasc and reduced atenolol by 50% 11/08 with better blood pressure 11/09 BPH -stable flomax -BID DVT proph - per ortho/spine
[2016-11-09] MEDS: DOCUSATE SODIUM/SENNA 50/8.6MG TAB PO SCH (20:46)
[2016-11-09] MEDS: TAMSULOSIN HCL 0.4 MG CAP PO SCH (20:46)
[2016-11-09] MEDS: ATORVASTATIN 10 MG TAB PO SCH (20:46)
[2016-11-10] MEDS: HYDROCODONE/ACETAMOPHEN 5/325MG TAB PO PRN ×3 (00:43→09:43)
[2016-11-10 07:18] VITALS: BP 123/66; PULSE 74; TEMP 36.8; O2SAT 94
[2016-11-10] MEDS: POLYETHYLENE (MIRALAX) 17 GM PACK PO SCH (09:00)
[2016-11-10] MEDS: DOCUSATE SODIUM 100 MG CAP PO SCH (09:44)
[2016-11-10] MEDS: GABAPENTIN 300 MG CAP PO SCH (09:44)
[2016-11-10] MEDS: ASPIRIN 81 MG ECTAB PO SCH (09:44)
[2016-11-10 09:45] LABS: HEMATOCRIT 26.9 % (42-52)
[2016-11-10] MEDS: LORAZEPAM 2 MG TAB PO PRN (09:49)
[2016-11-10 09:53] VITALS: BP 123/66; PULSE 74; TEMP 36.8; O2SAT 94
--- NOTE | 2016-11-10 10:37 | DISCHARGE SUMMARY ---
DATE OF DISCHARGE: 11/10/2016. PRINCIPAL DIAGNOSIS: Spinal stenosis. HOSPITAL COURSE FOLLOWS: On 11/06/2016 the patient underwent multilevel lumbar decompression and fusion, tolerated this well and taken to the orthopedic floor postoperatively. Postop day #1, he was up and ambulatory, continued to postop day #2. Postop day #3, he was transfused 2 units tolerated this well. Subsequently on postop day 4 he was discharged home. Discharge orders and instructions can be found on the chart for further review.
== END 2016-11-10 12:58 | disposition home health service (06) | DRG 460 ==
LOC: C.3E 12:48
PROVIDERS: ADMIT Orthopaedic Surgery Orthopaedic Surgery of the Spine; ATTEND Orthopaedic Surgery Orthopaedic Surgery of the Spine
PROC: 0SG30A1 (ICD-10-PCS; principal; 2016-11-06 12:30)
DX: M48.06 Spinal stenosis, lumbar region (principal); D62 Acute posthemorrhagic anemia; M43.16 Spondylolisthesis, lumbar region; I10 Essential (primary) hypertension; I25.10 Atherosclerotic heart disease of native coronary artery without angina pectoris; N40.0 Benign prostatic hyperplasia without lower urinary tract symptoms; I25.2 Old myocardial infarction; F41.9 Anxiety disorder, unspecified; Z79.82 Long term (current) use of aspirin; Z88.4 Allergy status to anesthetic agent; Z88.2 Allergy status to sulfonamides